=== PATIENT | female | born 2000 | race African-American/Black ===

== ENCOUNTER 2023-09-17 16:02 | Day surgery (SDC) | payer MEDICAID ==
[2023-09-17 16:35] VITALS: BMI 21.1
== END 2023-09-17 21:23 | disposition home or self-care (01) ==
LOC: CSHLD/OP 16:02
PROVIDERS: ATTEND Obstetrics & Gynecology
DX: O23.43 Unspecified infection of urinary tract in pregnancy, third trimester (principal); O34.219 Maternal care for unspecified type scar from previous cesarean delivery; Z3A.28 28 weeks gestation of pregnancy; Z79.899 Other long term (current) drug therapy
CPT/HCPCS: 76815; 76819; 81001; 84112; 87086; 87480; 87510; 87660

== ENCOUNTER 2023-12-04 23:41 | Inpatient (IN) | payer OTHER ==
[2023-12-05 00:16] VITALS: BMI 24.1
[2023-12-05] MEDS ORDERED: Misoprostol 200 MCG TAB PR PRN ×2 (00:50→02:24)
[2023-12-05] MEDS ORDERED: Carboprost 250 MCG/ML AMP IM PRN (00:50)
[2023-12-05] MEDS ORDERED: Diphenoxylate HCl/Atropine Tablet PO PRN ×2 (00:50)
[2023-12-05] MEDS ORDERED: Bicitra 30 ML UDCUP PO PRN (00:50)
[2023-12-05] MEDS ORDERED: Acetaminophen 500 MG TAB PO PRN (00:50)
[2023-12-05] MEDS ORDERED: Tranexamic Acid 1,000 MG/10 ML VIAL IVP PRN (00:50)
[2023-12-05] MEDS ORDERED: Promethazine HCl 25 MG/ML VIAL IM PRN ×2 (00:50→02:19)
[2023-12-05] MEDS ORDERED: Famotidine/PF 20 mg/2ml Vial SLOW IVP PRN (00:50)
[2023-12-05] MEDS ORDERED: fentaNYL 50 mcg/mL 1 mL Vial SLOW IVP PRN ×3 (00:50→14:30)
[2023-12-05] MEDS ORDERED: Methylergonovine 0.2 MG/ML VIAL IM PRN ×2 (00:50→02:24)
[2023-12-05] MEDS ORDERED: hydrALAZINE 20 MG/ML VIAL SLOW IVP PRN ×2 (00:50→02:24)
[2023-12-05] MEDS ORDERED: Ondansetron PF 4 MG/2 ML Vial IVP PRN ×4 (00:50→02:24)
[2023-12-05] MEDS ORDERED: Oxytocin 30 units/NS 500 ML 500 ML IV SCH ×2 (01:00→02:30)
[2023-12-05] MEDS ORDERED: CEFAZOLIN 2 GM in Sodium Chloride 0.9% 100 ML IVPB SCH (01:00)
[2023-12-05] MEDS ORDERED: Lactated Ringer's 1,000 ML IV SCH (01:00)
[2023-12-05 01:01] LABS: Fetal Membranes Rupture No Membranes Rupture (No Rupture)
[2023-12-05 01:28] LABS: #Basophils 0.04 10x3/uL (0.0-0.2); #Eosinphils 0.15 10x3/uL (0.0-0.5); #Monocytes 0.84 10x3/uL (0.0-1.1); #Neutrophils 8.17 10x3/uL (1.5-8.4); %Basophils 0.4 % (0.0-2.0); %Eosinophils 1.4 % (0.0-6.0); %Lymphocytes 14.5 % (18.0-47.0); %Monocytes 7.8 % (0.0-10.0); %Neutrophils 75.4 % (40.0-75.0); Mean Corpuscular HGB CONC 26.9 g/dL (32.0-36.0); Mean Corpuscular Hemoglobin 20.2 pg (27.0-33.0); Mean Corpuscular Volume 75.1 fL (81.6-98.3); Mean Platelet Volume 10.4 fL (7.4-10.4); Platelet Count 340 10x3/uL (150-450); RBC Distribution Width 19.6 % (11.5-14.5); Red Blood Cell (RBC) Count 3.46 10x6/uL (3.90-5.03); White Blood Cell (WBC) Count 10.8 10x3/uL (3.5-10.5)
[2023-12-05 01:56] LABS: Anisocytosis SLIGHT = 6-15 cells (100X) (0-5/hpf); Microcytosis SLIGHT = 6-15 cells (100X) (0-5/hpf); Platelet Adequacy Comment Appears Adequate
[2023-12-05 01:57] LABS: Hypochromia SLIGHT = 6-15 cells (100X) (0-5/hpf); Ovalocytes SLIGHT = 2-5 cells (100X) (0-1/hpf); Polychromasia SLIGHT = 2-3 cells (100X) (0-2/hpf)
[2023-12-05 01:59] LABS: HBsAg Index 0.19 S/CO (0-0.99); HIV (1/2) Antibody/Antigen Non-Reactive (NonReactive); HIV 1/2 INDEX 0.08 S/CO (<1.00); Hep B Surf Ag - L&D Non-Reactive S/CO (NonReactive)
[2023-12-05 02:00] LABS: Syphilis Antibody Nonreactive (Nonreactive); Syphilis Antibody Index 0.05 S/CO (<1.00 Non-Reactive)
[2023-12-05] MEDS ORDERED: diphenhydrAMINE 50 MG/ML VIAL IVP PRN (02:19)
[2023-12-05] MEDS ORDERED: Naloxone HCl 0.4 mg/ml Vial IVP PRN ×2 (02:19)
[2023-12-05] MEDS ORDERED: Moisturizing Cream (Eucerin) 113 GM JAR TOP PRN (02:19)
[2023-12-05] MEDS ORDERED: Meperidine HCl/PF 25 MG (1 mL) VIAL SLOW IVP PRN (02:19)
[2023-12-05] MEDS ORDERED: Naloxone HCl 0.4 mg/ml Vial IV PRN (02:19)
[2023-12-05] MEDS ORDERED: Ketorolac Tromethamine 30 MG (1 mL) VIAL IVP PRN (02:19)
[2023-12-05] MEDS ORDERED: Lanolin Ointment 7 GM TUBE TOP PRN (02:24)
[2023-12-05] MEDS ORDERED: Measles/Mumps/Rubella 10 MCG/0.5 ML VIAL SC ONE (02:24)
[2023-12-05] MEDS ORDERED: Boostrix 0.5 ML (Tdap) VIAL (>/=7 yrs of age) IM ONE (02:24)
[2023-12-05] MEDS ORDERED: Bisacodyl 10 MG SUPP PR PRN (02:24)
[2023-12-05] MEDS ORDERED: Acetaminophen 325 MG TAB PO PRN (02:24)
[2023-12-05] MEDS ORDERED: Simethicone Chewable 80 MG TAB PO PRN (02:24)
[2023-12-05] MEDS ORDERED: diphenhydrAMINE 25 MG CAP PO PRN (02:24)
[2023-12-05] MEDS ORDERED: Varicella virus, LIVE 0.5 ML VIAL SC ONE (02:24)
[2023-12-05 02:25] LABS: Analyzer IN Cardio CS NICU; Critical Notified By: clumpkins rt; RapidComm Collect By LD RN; pH (Cord, venous) 7.301 (7.250-7.350)
[2023-12-05 02:30] LABS: Analyzer IN Cardio CS NICU; Critical Notified By: clumpkins rt; RapidComm Collect By LD RN
[2023-12-05] MEDS ORDERED: Communication Order-Pharmacy FS SCH (02:30)
[2023-12-05] MEDS ORDERED: Ketorolac Tromethamine 30 MG (1 mL) VIAL IVP SCH (02:30)
[2023-12-05] MEDS: Morphine PF 10 MG/10 ML VIAL ONE (06:29)
[2023-12-05] MEDS: Phenylephrine 40 MG/NS 250 ML 250 ML ONE (06:30)
[2023-12-05] MEDS: PROPOFOL 0 ML ONE (06:30)
[2023-12-05] MEDS: Dexmedetomidine 200 MCG/2 ML VIAL ONE (06:30)
[2023-12-05] MEDS: Sodium Chloride 0.9% 20 ML ONE (06:30)
[2023-12-05] MEDS: Dexamethasone 10 MG/ML VIAL ONE (06:31)
[2023-12-05] MEDS: Lactated Ringer's 1,000 ML IV SCH (06:32)
[2023-12-05 09:35] LABS: #Basophils 0.02 10x3/uL (0.0-0.2); #Monocytes 0.35 10x3/uL (0.0-1.1); #Neutrophils 13.24 10x3/uL (1.5-8.4); %Basophils 0.1 % (0.0-2.0); %Lymphocytes 7.1 % (18.0-47.0); %Monocytes 2.4 % (0.0-10.0); %Neutrophils 89.7 % (40.0-75.0); Hematocrit 28.9 % (34.9-44.5); Mean Corpuscular HGB CONC 27.7 g/dL (32.0-36.0); Mean Corpuscular Hemoglobin 21.1 pg (27.0-33.0); Mean Corpuscular Volume 76.3 fL (81.6-98.3); Mean Platelet Volume 10.1 fL (7.4-10.4); Platelet Count 301 10x3/uL (150-450); RBC Distribution Width 20.1 % (11.5-14.5); Red Blood Cell (RBC) Count 3.79 10x6/uL (3.90-5.03); White Blood Cell (WBC) Count 14.8 10x3/uL (3.5-10.5)
[2023-12-05] MEDS: Prenatal Vitamin 1 TAB PO SCH (09:36)
[2023-12-05] MEDS: Docusate 100 MG CAP PO SCH (09:36)
[2023-12-05 09:45] LABS: ALT (SGPT) 11 U/L (8-55); AST (SGOT) 16 U/L (5-34); Albumin 2.6 g/dL (3.5-5.0); Alkaline Phosphatase 67 U/L (40-110); Anion Gap 12 mmol/L (10-20); BUN (Urea Nitrogen) 6 mg/dL (7.0-18.7); Bilirubin, Total 0.4 mg/dL (0.2-1.2); Calc. Creatinine Clearance 222 mL/min (70-130); Calcium 8.9 mg/dL (7.8-10.44); Carbon Dioxide 21 mmol/L (22-29); Chloride 107 mmol/L (98-107); Estimated GFR 136; Globulin 3.1 g/dL (2.4-3.5); Glucose 105 mg/dL (70-105); Potassium 4.1 mmol/L (3.5-5.1); Protein, Total 5.7 g/dL (6.0-8.3); Sodium 136 mmol/L (136-145)
[2023-12-05] MEDS: Ketorolac Tromethamine 30 MG (1 mL) VIAL IVP PRN (11:30)
[2023-12-05] MEDS ORDERED: Zolpidem Tartrate 5 MG TAB PO PRN (14:30)
[2023-12-05] MEDS: Ferrous Sulfate 325 MG TAB PO SCH (20:12)
[2023-12-05] MEDS: Oxytocin 10 UNITS/ML VIAL ONE (20:57)
[2023-12-05] MEDS: Tranexamic Acid 1,000 MG/10 ML VIAL ONE (20:57)
[2023-12-05] MEDS: Ondansetron PF 4 MG/2 ML Vial ONE (20:57)
[2023-12-05] MEDS: SUCCINYLCHOLINE/SOD CL,ISO/PF 200 MG/10 ML SYRINGE FS ONE (20:57)
[2023-12-05] MEDS: Ketorolac Tromethamine 30 MG (1 mL) VIAL ONE (20:57)
[2023-12-05] MEDS: HYDROcodone/Acetaminophen 5/325 mg Tablet PO PRN (23:32)
[2023-12-06 05:08] LABS: Hematocrit 27.4 % (34.9-44.5); Hemoglobin 7.6 g/dL (12.0-15.5); Mean Corpuscular HGB CONC 27.7 g/dL (32.0-36.0); Mean Corpuscular Hemoglobin 21.5 pg (27.0-33.0); Mean Corpuscular Volume 77.4 fL (81.6-98.3); Mean Platelet Volume 10.2 fL (7.4-10.4); Platelet Count 263 10x3/uL (150-450); RBC Distribution Width 20.2 % (11.5-14.5); Red Blood Cell (RBC) Count 3.54 10x6/uL (3.90-5.03); White Blood Cell (WBC) Count 16.3 10x3/uL (3.5-10.5)
[2023-12-06] MEDS: Ibuprofen 800 MG TAB PO SCH (05:46)
[2023-12-06] MEDS ORDERED: Ibuprofen 800 MG TAB PO SCH (06:00)
[2023-12-07] MEDS: HYDROcodone/Acetaminophen 5/325 mg Tablet PO PRN (22:10)
[2023-12-08 08:52] VITALS: BP 118/72; TEMP 98.3
== END 2023-12-08 12:45 | disposition home or self-care (01) | DRG 788 ==
LOC: CSHLD/OP 23:41 → CSHLD 12-05 00:51 → CSHPP 12-05 06:05
PROVIDERS: ADMIT Obstetrics & Gynecology; ATTEND Obstetrics & Gynecology
PROC: 10D00Z1 Extraction of Products of Conception, Low, Open Approach (ICD-10-PCS; principal; 2023-12-05)
PROC: 30233N1 Transfusion of Nonautologous Red Blood Cells into Peripheral Vein, Percutaneous Approach (ICD-10-PCS; 2023-12-05)
DX: O34.211 Maternal care for low transverse scar from previous cesarean delivery (principal); Z3A.39 39 weeks gestation of pregnancy; Z37.0 Single live birth; O99.02 Anemia complicating childbirth; D64.9 Anemia, unspecified; O76 Abnormality in fetal heart rate and rhythm complicating labor and delivery; O77.0 Labor and delivery complicated by meconium in amniotic fluid
CPT/HCPCS: 36415; 36430; 51702; 80053; 82805; 84112; 85025; 85027; 86780; 86850; 86900; 86901; 87340; 87389; 87480; 87510; 87660; 88307; 99285; J1100; J1885; J2274; J2405; J2590; J2704; P9016

== ENCOUNTER 2023-12-21 00:19 | Emergency (ER) | payer OTHER | END 2023-12-21 03:50 | disposition home or self-care (01) | LOC: CSHERS 00:19 | DX: Z48.02 Encounter for removal of sutures (principal) ==